=== PATIENT | female | born 1965 | race Caucasian/White ===

== ENCOUNTER 2017-05-31 07:14 | Day surgery (SDC) | payer OTHER ==
[~2017-05-31] VITALS: Ht 144.8 cm; Wt 61.0 kg
[2017-05-31] VITALS (13 sets, daily range): BP systolic 97–120; BP diastolic 49–61; PULSE 64–86; RESP 10–23; Ht 144.8 cm; Wt 61.0 kg
[~2017-05-31 07:14] MED LIST: LIDOCAINE 2% (SDV) 5 ML INJ ONE
[2017-05-31] MEDS ORDERED: CETI10CA PO (07:49)
[2017-05-31] MEDS ORDERED: DEXAMETHASONE 4 MG/ML 1 ML INJ ONE (08:17)
[2017-05-31] MEDS ORDERED: BUPIVACAINE 0.5% (SDV) 30 ML INJ ONE (08:17)
[2017-05-31] MEDS ORDERED: CEFAZOLIN 2 GM/50 ML (PMX) 50 ML IVPB ONE (09:00)
[2017-05-31] MEDS ORDERED: LACTATED RINGER'S 1,000 ML IV* ONE (09:00)
--- NOTE | 2017-05-31 09:45 | HPN ---
Date/Time of Note Date/Time of Note DATE: 05/31/17 TIME: 09:45 Interval H&P Admission Note Pt. seen H&P reviewed: No system changes SOTO SANTACRUZ DPM May 31, 2017 09:45
[2017-05-31] MEDS ORDERED: MIDAZOLAM 1 MG/ML 2 ML INJ ONE (09:53)
[2017-05-31] MEDS ORDERED: FENTAnyl 50 MCG/ML VIAL ONE (09:53)
[2017-05-31] MEDS ORDERED: HYDROmorphONE (0.2 MG/ML) 10ML SYG IV PRN ×5 (10:30→13:30)
[2017-05-31] MEDS ORDERED: ONDANSETRON 4 MG INJ IV PRN ×2 (10:30→13:30)
[2017-05-31] MEDS ORDERED: MEPERIDINE 25 MG INJ IV PRN ×2 (10:30→13:30)
[2017-05-31] MEDS ORDERED: DIPHENHYDRAMINE 50 MG INJ IV PRN ×2 (10:30→13:30)
[2017-05-31] MEDS ORDERED: FENTAnyl 50 MCG/ML VIAL IV PRN ×4 (10:30→13:30)
[2017-05-31] MEDS ORDERED: METOCLOPRAMIDE 10 MG INJ IV PRN ×2 (10:30→13:30)
[2017-05-31] MEDS ORDERED: PROPOFOL 20 ML ONE (10:47)
[2017-05-31] MEDS ORDERED: ONDANSETRON (ODT) 4 MG TAB ODT PRN (11:00)
[2017-05-31] MEDS ORDERED: HYDROCODONE/APAP (10/325) TAB PO PRN (11:00)
--- NOTE | 2017-05-31 13:50 | RADRPT ---
PROCEDURE: XR right foot. CLINICAL INDICATION: Postop TECHNIQUE: Three views of the right foot were obtained. COMPARISON: No prior studies are available for comparison. FINDINGS: There is soft tissue swelling with a small amount of gas within the soft tissues surrounding the fir st metatarsophalangeal joint. There is mild blunting along the medial aspect of the first metatarsal head which may be from bunionectomy. The metatarsals are in alignment with the cuneiforms. The bety nt spaces are maintained. There are no acute fractures. RPTAT: ZTian IMPRESSION: 1. Small amount of gas within the soft tissues surrounding the first metatarsophalangeal joint with mild soft tissue swelling from recent postsurgical change - probable bunionectomy. 2. No acute fracture. .Hanna aLndry MD, Date Time Electronically viewed and signed by .Hanna Landry MD, on 05/31/2017 13:50 .T/
--- NOTE | 2017-06-10 15:15 | OPR ---
DATE OF OPERATION: 05/31/2017 SURGEON: Germán Sethi DPM PREOPERATIVE DIAGNOSIS: Painful bunion deformity and cyst formation on the dorsal aspect of the right 1st metatarsophalangeal joint region. POSTOPERATIVE DIAGNOSIS: Painful bunion deformity and cyst formation on the dorsal aspect of the right 1st metatarsophalangeal joint region. OPERATION: The patient was brought into the Operating Room and approximately 10 mL of 0.5 percent plain Marcaine was used circumferentially around the 1st metatarsophalangeal joint region of the right foot. After anesthesia was achieved, the area was prepped and draped in the usual sterile fashion. Tourniquet was applied around the ankle. The foot and ankle was exsanguinated with an Esmarch bandage. Attention was directed to the dorsomedial aspect of the 1st metatarsal, where a 5 cm incision was performed with a number 15 blade. Sharp and blunt dissection were achieved. Care was taken to retract any nerve tissue and ligate any bleeding vessels. The capsular area was in clear view. Utilizing a number 15 blade. A linear capsulotomy was performed. It should be noted that the cystic formation appeared to be attached to the extensor hallucis tendon. This was circumscribed and removed and sent to pathology for analysis. There was a clear rm gel that was admitted from the cyst upon removal. Attention was then redirected to the dorsal aspect of the 1st metatarsophalangeal joint region. The exostosis was noted dorsally and medially. A reciprocating blade was then utilized to remove the exostosis and bunion deformity both dorsally and medially. The surgical site and joint was inspected. There was no signs of osteoarthritic changes noted. The area was copiously lavaged with antibiotic solution. The capsular tissue was then coapted with 2-0 and 3-0 Vicryl suture. The redundant capsular tissue was removed. Application of allograft EpiFix was applied over the capsular region to reduce inflammation. Reduce the chance of infection and increase healing viability. The subcutaneous tissue was then coapted with 3-0 Vicryl suture and the skin with a nylon suture. An Adaptic was then applied. Gauze was then applied. Rolled gauze was then applied and Coban. The tourniquet was released and normal reactive hyperemia was noted to all the digits of the right foot. The patient tolerated the procedure well. Left the Operating Room in stable condition. Dictated By: Germán Sethi DPM /rené/jeremias /Document#: [id number]
== END 2017-05-31 12:50 | disposition home or self-care (01) ==
LOC: SDS 07:14
PROVIDERS: ATTEND Podiatrist Foot & Ankle Surgery
DX: M21.611 Bunion of right foot (principal); M20.11 Hallux valgus (acquired), right foot; I10 Essential (primary) hypertension
CPT/HCPCS: 28104; 73630; 84703; 88304; 88311; J2250; J2405; J3010; L3260; Z7512; Z7610; J1100